=== PATIENT | female | born 1995 | race Caucasian/White ===

== ENCOUNTER 2021-08-29 11:30 | Emergency (ER) | payer OTHER, SELFPAY ==
--- NOTE | ~2021-08-29 | XR_ITS ---
EXAMINATION: XR chest 1V portable EXAM DATE: 08/29/2021 12:29 INDICATION: Cough and shortness of breath. TECHNIQUE: Portable AP frontal chest x-ray was obtained. There is no prior study for comparison. FINDINGS: The lungs are clear. There are no pleural effusions. The cardiomediastinal silhouette is within normal limits. There is no pneumothorax suspected. The bones and soft tissues are unremarkab le. IMPRESSION: No acute cardiopulmonary findings. Reviewed, dictated and finalized at location A. ERY CLERK
[2021-08-29 11:39] VITALS: BP 105/61; PULSE 105; RESP 18; TEMP 37.7; O2SAT 100
[2021-08-29] MEDS: SODIUM CHLORIDE 0.9% IV 1,000 ML 999 ML IV CONT (12:28)
[2021-08-29] MEDS: FAMOTIDINE 20 MG/2 ML VIAL IV PUSH (12:28)
--- NOTE | 2021-08-29 14:17 | ED.GENADULT ---
HPI - General Adult General Chief complaint: Upper Respiratory Infection Stated complaint: Vomiting and diarrhea Time Seen by Provider: 08/29/21 11:33 Source: patient and RN notes reviewed Mode of arrival: ambulatory Limitations: no limitations History of Present Illness HPI narrative: Patient is a 25-year-old female who presents with cough congestion rhinorrhea nausea that began over the course of the last 2 days she notes that she is not vaccinated she has had multiple sick contacts at work she has not been tested for COVID she presents nondistressed. 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 in the following week denies any abdominal pain vaginal bleeding or discharge or urinary symptoms Related Data Allergies Allergy/AdvReac Type Severity Reaction Status Date / Time diphenhydramine Allergy Unknown Nausea Verified 09/11/16 14:28 azithromycin AdvReac Unknown Nausea Verified 09/11/16 14:28 Review of Systems Review of Systems: All systems reviewed & are unremarkable except as noted in HPI and below PMFSH Family History Family History (Updated 04/14/14 @ 07:13 by DOCTOR UNKNOWN) Other Family history of arthritis Family history of malignant neoplasm Hypertension Social History Social History Smoking status: Current every day smoker Exam Narrative: GENERAL: Well-appearing, well-nourished, and in no acute distress. HEAD: Normocephalic, atraumatic. EYES: PERRLA and EOMI. ENT: Nares clear, no rhinorrhea or epistaxis. Mucous membranes moist. Oropharynx without tonsillar hypertrophy exudate or other lesions. CHEST: Clear to auscultation. No respiratory distress. No wheezes rales or rhonchi HEART: Regular rate and rhythm. No murmur heard. Normal peripheral pulses. EXTREMITIES: Normal range of motion. No edema. SKIN: Warm, dry, no rash. NEURO: No focal deficits. Alert and oriented x3. PSYCH: Normal mood and affect. Course Course Emergency Course: Patient presented with upper respiratory symptoms afebrile nontoxic-appearing nondistressed will be discharged home COVID testing pending she has been advised to follow with her Aaron chart for her COVID-19 results she is agreeing to do so. He is afebrile nontoxic-appearing nondistressed and has also been given indications for return Vital Signs Vital signs: Vital Signs Temperature 99.8 F H 08/29/21 11:39 Pulse Rate 105 H 08/29/21 11:39 Respiratory Rate 18 08/29/21 11:39 Blood Pressure 105/61 08/29/21 11:39 Pulse Oximetry 100 08/29/21 11:39 Temperature 99.8 F H 08/29/21 11:39 Pulse Rate 105 H 08/29/21 11:39 Respiratory Rate 18 08/29/21 11:39 Blood Pressure 105/61 08/29/21 11:39 Pulse Oximetry 100 08/29/21 11:39 Medical Decision Making MDM Narrative Medical decision making narrative: Patient presented with upper respiratory symptoms tested for COVID-19 no hypoxemia no pneumonia seen on exam she will be discharged home with presumptive COVID-19 diagnosis Vital Signs Vital Signs: Vital Signs Temperature 99.8 F H 08/29/21 11:39 Pulse Rate 105 H 08/29/21 11:39 Respiratory Rate 18 08/29/21 11:39 Blood Pressure 105/61 08/29/21 11:39 Pulse Oximetry 100 08/29/21 11:39 Temperature 99.8 F H 08/29/21 11:39 Pulse Rate 105 H 08/29/21 11:39 Respiratory Rate 18 08/29/21 11:39 Blood Pressure 105/61 08/29/21 11:39 Pulse Oximetry 100 08/29/21 11:39 Lab Data Labs: Lab Results 08/29/21 Range/Units 12:18 SARS-CoV-2 RNA (RT-PCR) Pending Imaging Data Radiologist's impression: ITS Impressions Chest X-Ray 08/29/21 12:31 IMPRESSION: No acute cardiopulmonary findings. Discharge Plan Discharge Clinical Impression: Upper respiratory infection Patient Disposition: Home, Self-Care Condition: Stable Instructions: Antibiotic Form,
[2021-08-29 14:42] VITALS: BP 122/78; PULSE 67; RESP 18; O2SAT 99
[2021-08-29 21:18] LABS: SARS-CoV-2 RNA PCR Negative
== END 2021-08-29 14:49 | disposition home or self-care (01) ==
PROVIDERS: Emergency Medicine Emergency Medical Services; Emergency Provider Emergency Medicine
DX: J06.9 Acute upper respiratory infection, unspecified (principal); Z20.822 Contact with and (suspected) exposure to COVID-19; F17.210 Nicotine dependence, cigarettes, uncomplicated
CPT/HCPCS: 71045; 96365; 96375; 99284; C9803; J0131; J7030; U0003; U0005

== ENCOUNTER 2022-03-31 21:58 | Observation (INO) | payer OTHER, SELFPAY ==
--- NOTE | 2022-03-31 21:58 | OBADM ---
This patient, Rosalie Houser, admitted to the OB room OB Post 115 for observation. Patient/family oriented to hospital policies and general routines including ID bracelet, bed and alarms, visiting hours, pain management, procedures, bathroom and other care routines, personal items, smoking policy, room service/diet, and visiting hours. Patient/Family are encouraged to report perceived risks to care and to ask questions if they do not understand what they are told or what they should do.
[2022-03-31 22:28] VITALS: BP 108/65; PULSE 96
[2022-03-31 22:30] VITALS: BP 107/60; PULSE 101; TEMP 37.1
[2022-03-31 22:45] VITALS: BP 96/65; PULSE 103
[2022-03-31 22:56] LABS: Appearance Urine Clear (Clear); Bilirubin Urine Negative (Negative); Blood Urine Negative (Negative); Color Urine Yellow (Yellow); Glucose Urine UA Negative (Negative); Ketones Urine Negative (Negative); Leukocyte Esterase Ur 1+ LEU/UL (Negative); Nitrate Urine Negative (Negative); Protein Urine Negative (Negative); Specific Grav Ur >= 1.030 (1.001-1.035)
[2022-03-31 23:00] VITALS: BP 100/60; PULSE 106
[2022-03-31 23:00] LABS: Bacteria Urine Trace /hpf; Mucus Urine Rare /lpf; Squamous Epithelial Cell Urine Few /hpf (Few)
[2022-03-31 23:02] LABS: Add Urine Microscopic? YES
--- NOTE | 2022-03-31 23:05 | PC.NURSE ---
Updated Dr. Manzanares on patient assessment. Patient complaint of vaginal burning since 1999. No discharge or redness noted during assessment. FHT reactive. No contractions were noted via monitoring and abdomen palpates soft. Orders received.
[2022-03-31] MEDS: FLUCONAZOLE 50 MG TABLET PO (23:37)
--- NOTE | 2022-04-05 07:03 | PM.OBTRLD ---
OB - Triage/Final Diagnosis Visit Information Comments/Additional reasons for admission: I have assessed the risk for this patient, Rosalie Houser, and determined that she would benefit from observation care. Evaluation Laboratory results: Laboratory Tests 03/31/22 22:50 Urine Color Yellow Urine Appearance Clear Urine pH 6.0 Ur Specific [place] >= 1.030 Urine Protein Negative Urine Glucose (UA) Negative Urine Ketones Negative Ur Blood (Man) Negative Urine Nitrate Negative Urine Bilirubin Negative Urine Urobilinogen 1.0 Leukocyte Esterase Rfl 1+ H Urine RBC 3-5 H Urine WBC 7-9 H Ur Squamous Epith Cells Few Urine Bacteria Trace Urine Mucus Rare Final Diagnosis (1) Vaginal irritation: Code(s): N89.8 - Other specified noninflammatory disorders of vagina Status: Acute
== END 2022-03-31 23:40 | disposition home or self-care (01) ==
PROVIDERS: Admitting Provider Obstetrics & Gynecology; Visit Provider Obstetrics & Gynecology
DX: O99.891 Other specified diseases and conditions complicating pregnancy (principal); N89.8 Other specified noninflammatory disorders of vagina; Z3A.38 38 weeks gestation of pregnancy
CPT/HCPCS: 81001; 87086; A9270; G0378; G0379

== ENCOUNTER 2022-04-03 13:26 | Inpatient (IN) | payer OTHER, SELFPAY ==
[2022-04-03] VITALS (89 sets, daily range): BP systolic 93–137; BP diastolic 47–81; PULSE 56–126; RESP 16–17; TEMP 36.8–37.3; O2SAT 96–100; BMI 24.3
--- NOTE | 2022-04-03 14:21 | LDADM ---
This patient, Rosalie Houser, was admitted to Labor/Delivery/Recovery 104 on 04/03/22 at 13:26. Plans for labor, pain management and were discussed with patient. Patient/family oriented to hospital policies and general routines including ID bracelet, bed and alarms, visiting hours, pain management, procedures, bathroom and other care routines, personal items, smoking policy, room service/diet and guest tray routines, infant security routines, and visiting hours. Patient/Family are encouraged to report perceived risks to care and to ask questions if they do not understand what they are told or what they should do. See OBIX for further documentation.
[2022-04-03] MEDS: AMPICILLIN 2 GM/NS 100 ML 2 GM/100 ML BAG IVPB (14:24)
[2022-04-03] MEDS: LACTATED RINGERS 1,000 ML 125 ML IV CONT ×3 (14:24→18:18)
[2022-04-03] MEDS: OXYTOCIN 30 UNITS/NS 500 ML 30 UNITS/500 ML BAG IV CONT (14:26)
[2022-04-03 14:27] LABS: Basophils Absolute Auto 0.1 K/mm3 (0.0-0.1); Basophils Percent Auto 0.4 % (0.2-1.2); Eosinophils Absolute Auto 0.1 K/mm3 (0-0.3); Eosinophils Percent Auto 0.5 % (0-4.4); Hematocrit 28.6 % (37.0-47.0); Hemoglobin 9.5 g/dL (12.0-15.0); Immature Granulocyte Absolute 0.08 K/mm3 (0.00-0.031); Immature Granulocyte Percent A 0.7 % (0-0.5); Lymphocytes Absolute Auto 2.32 K/mm3 (0.9-3.2); Lymphocytes Percent Auto 19.3 % (18.3-44.2); Mean Corpuscular HGB Conc 33.2 g/dl (32-36); Mean Corpuscular Hemoglobin 29.9 pg (26-34); Mean Corpuscular Volume 89.9 fl (80-100); Mean Platelet Volume 9.8 fl (7.4-10.4); Monocytes Absolute Auto 0.7 K/mm3 (0.1-0.6); Monocytes Percent Auto 5.5 % (2.6-8.5); Neutrophils Absolute Auto 8.8 K/mm3 (1.3-6.7); Neutrophils Percent Auto 73.6 % (45.5-73.1); Platelet Count Result 316 k/mm3 (150-375); Red Blood Count 3.18 M/mm3 (4.2-5.4); Red Cell Distribution Width 13.1 % (11.5-14.5)
[2022-04-03 15:08] LABS: HIV 1/2 Ab P24 Ag Result Negative (Negative)
[2022-04-03 15:09] LABS: Amphetamine Screen Urine Negative (Negative); Barbiturate Screen Urine Positive (Negative); Benzodiazepines Screen Urine Negative (Negative); Cannabinoid Screen Urine Negative (Negative); Cocaine Screen Urine Negative (Negative); Methadone Screen Urine Negative (Negative); Opiate Screen Urine Negative (Negative); Phencyclidine Screen Urine Negative (Negative)
--- NOTE | 2022-04-03 16:16 | WPDANESEPP ---
Anes - Eval Pre Procedure Procedure: labor epidural Date/Time: 04/03/22 16:16 Preop Diagnosis: labor pain Pre Op Diagnosis: IOL Patient Data Age: 26 Gender: F Height: 1.55 m Weight: 58.5 kg Last Vital Signs Temp 37.2 C 04/03/22 14:30 Pulse 93 04/03/22 15:30 BP 100/61 04/03/22 15:30 O2 Del Method Room Air 04/03/22 14:02 Allergies Allergy/AdvReac Type Severity Reaction Status Date / Time diphenhydramine Allergy Unknown Flushing Verified 04/03/22 13:56 azithromycin AdvReac Unknown Rash Verified 04/03/22 13:56 Home Medications Medication Instructions Recorded Confirmed Type ondansetron 4 mg disintegrating 4 mg PO Q8H PRN nausea and 09/03/21 04/03/22 Rx tablet vomiting #20 tabs PNV 153-FA 400 mcg-om3 35 mg-dha 1 tablet PO DAILY 04/03/22 04/03/22 History 25 mg-epa 5 mg-fish oil chew tablet ( Gummies) [id number]-[id number]-czxkcpew 1 tablet PO PRN PRN Headache 04/03/22 04/03/22 History 50 mg-325 mg-40 mg tablet Laboratory Tests 04/03/22 04/03/22 04/03/22 14:09 14:09 14:09 WBC 12.0 K/mm3 H K/mm3 (4.5-10.0) RBC 3.18 M/mm3 L M/mm3 (4.2-5.4) Hgb 9.5 g/dL L g/dL (12.0-15.0) Hct 28.6 % L % (37.0-47.0) MCV 89.9 fl fl (80-100) MCH 29.9 pg pg (26-34) MCHC 33.2 g/dl g/dl (32-36) RDW 13.1 % % (11.5-14.5) Plt Count 316 k/mm3 k/mm3 (150-375) MPV 9.8 fl fl (7.4-10.4) Immature Gran % (Auto) 0.7 % H % (0-0.5) Neut % (Auto) 73.6 % H % (45.5-73.1) Lymph % (Auto) 19.3 % % (18.3-44.2) [place] % (Auto) 5.5 % % (2.6-8.5) Eos % (Auto) 0.5 % % (0-4.4) Baso % (Auto) 0.4 % % (0.2-1.2) Lymph # (Auto) 2.32 K/mm3 K/mm3 (0.9-3.2) [place] # (Auto) 0.7 K/mm3 H K/mm3 (0.1-0.6) Eos # (Auto) 0.1 K/mm3 K/mm3 (0-0.3) Baso # (Auto) 0.1 K/mm3 K/mm3 (0.0-0.1) Abs Immat Gran (auto) 0.08 K/mm3 H K/mm3 (0.00-0.031) Absolute Neuts (auto) 8.8 K/mm3 H K/mm3 (1.3-6.7) Absolute Nucleated RBC 0.0 K/mm3 K/mm3 (0.0-0.012) Nucleated RBC % 0.0 % % (0.0-0.2) Urine Opiates Screen Urine Methadone Screen Ur Barbiturates Screen Ur Phencyclidine Scrn Ur Amphetamine Screen U Benzodiazepines Scrn Urine Cocaine Screen U Cannabinoids Screen RPR Pending HIV 1&2 Ab/P24 Ag 4thGn Negative (Negative) Blood Type Antibody Screen 04/03/22 04/03/22 14:09 14:09 WBC RBC Hgb Hct MCV MCH MCHC RDW Plt Count MPV Immature Gran % (Auto) Neut % (Auto) Lymph % (Auto) [place] % (Auto) Eos % (Auto) Baso % (Auto) Lymph # (Auto) [place] # (Auto) Eos # (Auto) Baso # (Auto) Abs Immat Gran (auto) Absolute Neuts (auto) Absolute Nucleated RBC Nucleated RBC % Urine Opiates Screen Negative (Negative) Urine Methadone Screen Negative (Negative) Ur Barbiturates Screen Positive A (Negative) Ur Phencyclidine Scrn Negative (Negative) Ur Amphetamine Screen Negative (Negative) U Benzodiazepines Scrn Negative (Negative) Urine Cocaine Screen Negative (Negative) U Cannabinoids Screen Negative (Negative) RPR HIV 1&2 Ab/P24 Ag 4thGn Blood Type B Positive Antibody Screen Negative Patient hx anesthesia problems: none Family hx anesthesia problems: none Results Review: All pre-operative results and documents have been reviewed as part of the pre-operative evaluation. PMFSH Past Medical History [facility]
[2022-04-03] MEDS: ACETAMINOPHEN 500 MG TABLET 1000 MG PO (17:10)
[2022-04-03] MEDS: AMPICILLIN 1 GM/NS 50 ML 1 GM/50 ML BAG IVPB (18:18)
--- NOTE | 2022-04-03 18:19 | WPDOBADMIT ---
Obstetrics - Admit Note Admission Note: record reviewed. No pertinent additions to the history and/or any subsequent changes in the physical findings that are not consistent with the expected course of the were found. Pt admitted to for IOL for oligohydramnios, Limited care, had not been seen in office since anatomy scan in December 2021. SVE 4-5/50/-2 AROM minimal amount of clear odorless fluid Additions to the history and/or subsequent changes in the physical findings follow. None.
--- NOTE | 2022-04-03 18:27 | PC.NURSE ---
Notes from admission until 1814 charted under Hanane Joseph RNs name actually charted by Brigid Cazares RN
[2022-04-03] MEDS: miSOPROStol 200 MCG TABLET 1000 MCG (20:06)
--- NOTE | 2022-04-03 20:09 | PM.OBPRVD ---
OB - Delivery Note Procedure Delivery date: 04/03/22 Procedure: Vaginal delivery Events: Other (Limited care and oligohydramnios) Induction method: Per Pitocin Protocol Delivery augmentation: Rupture of Membranes Delivery monitor: External FHT and External Uterine Route of delivery: Episiotomy description: None Laceration Description: Perineal - 1st Degree Delivery repair: vicryl Specimen: Yes Quantitative Blood Loss (ml): 155 Anesthesia type: Epidural Disposition: Floor [place] Baby Date of : 04/03/22 Time of : 19:52 Weeks of gestation at delivery: 39 Infant gender: Female Weight (pounds): 6 Weight (ounces): 7 presentation: vertex position: Left Occiput Anterior Placenta delivery description: Spontaneous Cord Vessel Description: 3 Vessels score one minute: 9 score five minutes: 9 Narrative: Mom and baby in stable condition. Baby to warmer for clean up per mom request.
[2022-04-03] MEDS: OXYTOCIN 30 UNITS/NS 500 ML 30 UNITS/500 ML BAG 125 UNITS IV CONT (20:27)
[2022-04-03] MEDS: WITCH HAZEL 40 PADS 1 PAD TOPICAL (22:28)
[2022-04-03] MEDS: BENZOCAINE 20% AER SPR (*SP) 56 GM CAN 1 SPRAY TOPICAL (22:28)
--- NOTE | 2022-04-03 22:39 | OBPPTRN ---
Patient transferred to post room #284 via W/C. Support person present. Oriented to unit, room, information board, rooming in, admission packet and security measures. Patient verbalizes understanding.
[2022-04-04] MEDS: IBUPROFEN 600 MG TABLET PO ×2 (01:03→20:51)
[2022-04-04 04:05] VITALS: BP 112/63; PULSE 60; RESP 18; TEMP 36.9
[2022-04-04 05:10] LABS: Hematocrit 25.5 % (37.0-47.0); Hemoglobin 8.5 g/dL (12.0-15.0)
[2022-04-04 07:36] LABS: Rapid Plasma Reagin Non-Reactive (NonReactive)
[2022-04-04] MEDS: DOCUSATE SODIUM 100 MG CAPSULE PO ×2 (07:39→16:07)
[2022-04-04] MEDS: ACETAMINOPHEN 325 MG TABLET 650 MG PO (07:39)
[2022-04-04] MEDS: POLYSACCHARIDE IRON COMPLEX 150 MG CAPSULE PO ×2 (07:41→16:07)
--- NOTE | 2022-04-04 07:41 | P.PNOB_ITS ---
OB - PN: Subj Subjective Date/time seen: 04/04/22 07:41 Patient comments: no complaints, pain well controlled, incisional pain, tolerating diet and flatus present OB - PN: Obj Data Labs CBC & Chem 7: 04/04/22 04:14 Labs: Laboratory Results - last 24 hr 04/03/22 04/03/22 04/03/22 14:09 14:09 14:09 WBC 12.0 H RBC 3.18 L Hgb 9.5 L Hct 28.6 L MCV 89.9 MCH 29.9 MCHC 33.2 RDW 13.1 Plt Count 316 MPV 9.8 Immature Gran % (Auto) 0.7 H Neut % (Auto) 73.6 H Lymph % (Auto) 19.3 [place] % (Auto) 5.5 Eos % (Auto) 0.5 Baso % (Auto) 0.4 Lymph # (Auto) 2.32 [place] # (Auto) 0.7 H Eos # (Auto) 0.1 Baso # (Auto) 0.1 Abs Immat Gran (auto) 0.08 H Absolute Neuts (auto) 8.8 H Absolute Nucleated RBC 0.0 Nucleated RBC % 0.0 Urine Opiates Screen Urine Methadone Screen Ur Barbiturates Screen Ur Phencyclidine Scrn Ur Amphetamine Screen U Benzodiazepines Scrn Urine Cocaine Screen U Cannabinoids Screen RPR Non-reactive HIV 1&2 Ab/P24 Ag 4thGn Negative Blood Type Antibody Screen 04/03/22 04/03/22 04/04/22 14:09 14:09 04:14 WBC RBC Hgb 8.5 L Hct 25.5 L MCV MCH MCHC RDW Plt Count MPV Immature Gran % (Auto) Neut % (Auto) Lymph % (Auto) [place] % (Auto) Eos % (Auto) Baso % (Auto) Lymph # (Auto) [place] # (Auto) Eos # (Auto) Baso # (Auto) Abs Immat Gran (auto) Absolute Neuts (auto) Absolute Nucleated RBC Nucleated RBC % Urine Opiates Screen Negative Urine Methadone Screen Negative Ur Barbiturates Screen Positive A Ur Phencyclidine Scrn Negative Ur Amphetamine Screen Negative U Benzodiazepines Scrn Negative Urine Cocaine Screen Negative U Cannabinoids Screen Negative RPR HIV 1&2 Ab/P24 Ag 4thGn Blood Type B Positive Antibody Screen Negative OB - PN A/P Plan day: 1 Plan: routine care Comments: No problems, routine care Time Spent With Patient Time: Total time spent is greater than 50% in coordination of care (as documented) at patient's floor/unit and/or counseling patient: Exam Const: General: comfortable, no acute distress and alert Resp: Effort & Inspection: normal respiratory effort Auscultation: no cranberry grower ckles, no rales and no rhonchi Cardio: Rate: regular rate Heart sounds: no click, no murmurs and no rubs GI: Inspection: non-distended GI Palp: No Tenderness to palpation present (GI) Auscultation: normal bowel sounds Other: Incision - CDI Extrem: General: normal to inspection, no pedal edema and no calf tenderness
[2022-04-04 07:45] VITALS: BP 112/74; PULSE 60; RESP 18; TEMP 37.1; O2SAT 100
--- NOTE | 2022-04-04 09:40 | PC.NURSE ---
[id number] Introductions were made, then consulted with patient to assess needs related to pumping for milk production. Mother led the conversation with her?plans to feed?her formula with no pumping. Reported to primary RN.
--- NOTE | 2022-04-04 12:02 | WPDANLDPN2 ---
Anes-Prog Note L&D Date/Time: 04/04/22 12:02 Comfortable throughout: labor and delivery Neuraxial method: epidural Epidural/Spinal procedure site: clean & non-tender Neuro status: Neuro function grossly intact. Cardiovascular status: normal Respiratory status: normal Airway patency: baseline Mental status: baseline Post-Op hydration status: normal Vital Signs: Last Vital Signs Temp 37.1 C 04/04/22 07:45 Pulse 60 04/04/22 07:45 Resp 18 04/04/22 07:45 BP 112/74 04/04/22 07:45 Pulse Ox 100 04/04/22 07:45 O2 Del Method Room Air 04/03/22 23:00 Pain score (VAS): 2 I/O: Intake & Output 04/03/22 04/04/22 04/04/22 23:59 07:59 15:59 Intake Total 2000 Output Total 50 Balance 1950 Patient feedback: Patient satisfied with anesthetic care.
[2022-04-04 12:30] VITALS: BP 96/65; PULSE 82; RESP 14; TEMP 36.6; O2SAT 99
[2022-04-04] MEDS: ACETAMINOPHEN 500 MG TABLET 1000 MG PO (16:07)
[2022-04-04 16:20] VITALS: BP 117/73; PULSE 71; RESP 14; TEMP 36.5; O2SAT 99
[2022-04-04 19:40] VITALS: BP 111/75; PULSE 74; RESP 16; TEMP 36.7; O2SAT 99
[2022-04-05] MEDS: ACETAMINOPHEN 500 MG TABLET 1000 MG PO (05:35)
[2022-04-05] MEDS: TETANUS,DIPHTHERIA,AC PERTUSSIS ADULT (0.5 ML) BOOSTRIX IM (05:35)
[2022-04-05 07:20] VITALS: BP 101/65; PULSE 64; RESP 16; TEMP 36.6; O2SAT 100
--- NOTE | 2022-04-05 07:26 | PM.OBPNVD ---
OB - PN: Subj Subjective Date/time seen: 04/05/22 07:26 s/p vaginal delivery day 2 OB - PN: Obj Data Labs CBC & Chem 7: 04/04/22 04:14 Labs: Laboratory Results - last 24 hr 04/03/22 14:09 RPR Non-reactive OB - PN A/P Plan day: 2 Plan: routine care and discharge home Time Spent With Patient Time: Total time spent is greater than 50% in coordination of care (as documented) at patient's floor/unit and/or counseling patient: Review of Systems Review of Systems: All systems reviewed & are unremarkable except as noted in HPI and below Exam Const: General: cooperative, healthy appearing and comfortable
--- NOTE | 2022-04-05 07:28 | PM.OBDSVD ---
DS: Admitting Diagnosis Discharge Date 04/05/22 Admitting Diagnosis IOL, oligohydramnios OB - DS: Summary OB Procedures : None OB Procedures Intrapartum: Spontaneous Vag Delivery OB Procedures: : None Time Spent with Patient Time attestation: Total time spent providing and/or coordinating discharge services: DS: Data Data Completed and Pending Pending studies at discharge: Pending at discharge 04/03/22 19:56 Surgical [PTH] Routine Labs on day of discharge: Labs from last 24 hours 04/03/22 14:09 RPR Non-reactive Discharge Plan Discharge Attending physician on discharge: Crow Hurtado Discharging Clinician: Della Mclaughlin Patient Disposition: Home, Self-Care Activity: pelvic rest Diet: regular Patient Instructions: Antibiotic Form Stand Alone Forms: General Discharge Information Follow-up/Referrals: Della Mclaughlin, CNM [Certified Nurse First Grade Teacher] - 4 Weeks Discharge Medications: New polysaccharide iron complex 150 mg iron Capsule 150 mg PO BIDWM Qty: 60 0RF ibuprofen 600 mg Tablet 600 mg PO Q6H PRN (Reason: Cramping) Qty: 30 0RF Continued Gummies 400 mcg-35 mg- 25 mg-5 mg Tablet,Chewable 1 tablet PO DAILY Discontinued ondansetron 4 mg tablet,disintegrating 4 mg PO Q8H PRN (Reason: nausea and vomiting) Qty: 20 0RF cfueelqrga-ndjwrragmksrp-wyfh 50-325-40 mg tablet 1 tablet PO PRN PRN (Reason: Headache) Date of admission: 04/03/22 13:26 Primary Care Provider: PHYSICIAN,CONSULTING TECHNICAL MANAGER Admitting Provider: Crow Hurtado Attending physician on admission: Crow Hurtado Condition: Stable
[2022-04-05] MEDS: POLYSACCHARIDE IRON COMPLEX 150 MG CAPSULE PO (07:58)
[2022-04-05] MEDS: DOCUSATE SODIUM 100 MG CAPSULE PO (07:58)
--- NOTE | 2022-04-05 08:33 | PC.NURSE ---
Patient was given the opportunity to view the discharge video Mother & Baby Care, The First Two Weeks and to ask questions. Patient declined viewing the video and has been given the mother/baby guide for home reference.
--- NOTE | 2022-04-05 10:34 | PC.NURSE ---
note; my initial information stated mother was choosing to pump and bottle feed . Mother planning discharge today, and I stopped in to see pt and discuss her pumping; pt reports she has not started pumping I don't have anything and plans to see her WIC office to get a pump. Primary nurse reports and notes confirm that pt told 2 nurses she did not want to pump, that she wanted to bottle feed and for her milk to dry up . I told the pt I would return. I returned to pt's room to offer to give her a pump kit so that she could hand pump over the weekend, and pt had been discharged home, she did not wait for nurse to return. I was able to obtain her signature consent to fax information to the [facility] Department, and form was faxed at [phone]. I also spoke to Niki the Health Department and all of the above explained to her.
[2022-04-06 11:24] VITALS: BP 99/61; PULSE 77; RESP 18; TEMP 36.7; O2SAT 98
== END 2022-04-05 09:40 | disposition home or self-care (01) | DRG 560 ==
LOC: ANHLDR 13:30 → ANHOB2 04-04 01:18
PROVIDERS: Advanced Practice Midwife; Admitting Provider Obstetrics & Gynecology; Visit Provider Obstetrics & Gynecology
DX: O41.03X0 Oligohydramnios, third trimester, not applicable or unspecified (principal); O70.0 First degree perineal laceration during delivery; Z3A.39 39 weeks gestation of pregnancy; Z37.0 Single live birth
CPT/HCPCS: 36415; 80307; 85014; 85018; 85025; 86592; 86703; 86850; 86900; 86901; 88307; 90715; A9270; G0432; J0290; J2590; J2795; J7120

== ENCOUNTER 2023-07-18 14:54 | Emergency (ER) | payer OTHER, SELFPAY ==
--- NOTE | ~2023-07-18 | XR_ITS ---
XR finger 1st LT min 2V DATE: 07/18/2023 15:15 INDICATION: Possible injury last night. Pain of proximal and distal phalanges of first digit TECHNIQUE: 3 views of first digit COMPARISON: None FINDINGS: No fracture or dislocation, periosteal reaction or bone destruction. Joint spaces are prese rved. No erosive change. IMPRESSION: Negative Reviewed, dictated and finalized at location A. OR TECHNICAL MANAGER IMPRESSION: Negative
[2023-07-18 15:03] VITALS: BP 101/56; PULSE 81; RESP 16; TEMP 36.7; O2SAT 100
--- NOTE | 2023-07-18 15:08 | ED.UPPEXIN ---
HPI - Extremity Injury (Upper) General Chief Complaint: Extremity Injury, Upper Stated Complaint: Lt Thumb Injury Source: patient, RN notes reviewed and old records reviewed Mode of arrival: ambulatory Limitations: no limitations History of Present Illness HPI narrative: 27-year-old female presents to [facility] with complaint of left thumb pain, swelling, bruising this started after patient tried tissue to crossbow and finger got caught in both. Patient states he has tried ice area without relief. Patient says has tingling and tip of finger. MD complaint: injury to: left and finger Onset (ago): day(s) (1) Other Extremity Injury: Left: fingers ( Left thumb) Relieving factors: none Exacerbating factors: none Related Data Home Medications Medication Instructions Recorded Confirmed methylphenidate HCl 36 mg 36 mg PO DAILY 07/18/23 07/18/23 tablet,extended release 24 hr (Concerta) Allergies Allergy/AdvReac Type Severity Reaction Status Date / Time azithromycin AdvReac Mild Rash Verified 07/18/23 15:18 diphenhydramine AdvReac Mild Rash Verified 07/18/23 15:18 Review of Systems Constitutional: Constitutional: Reports no additional constitutional complaints Eyes: Eyes: Reports no additional eye complaints ENT: Reports system reviewed and no additional complaints, except as documented Cardiovascular: Cardiovascular: Reports no additional cardiovascular complaints Respiratory: Respiratory: Reports no additional respiratory complaints Musculoskeletal: Musculoskeletal: Reports as per HPI Comments: Left thumb pain and swelling Neurologic: Reports system reviewed and no additional complaints, except as documented [facility] Past Medical History Medical History Anxiety Asthma Chondromalacia Depression Migraine Right knee pain Surgical History Surgical History No history of previous surgery Family History Family History Other Family history of arthritis Family history of malignant neoplasm Hypertension Social History Social History Smoking status: Light tobacco smoker Second hand tobacco smoke exposure: Yes Substance use: never Spiritual care concerns: No Comments At the time of my signature, I reviewed and agree with the nursing past medical, surgical, social, and family history. There is no relevant family history pertinent to the patient complaint. Exam Const: General: cooperative, healthy appearing, no acute distress and well nourished Nutritional Appearance: well nourished Orientation/consciousness: patient oriented x3 Limitations: no limitations HENMT: Head: normal to inspection and normocephalic Ears: external ears normal, TM's normal bilaterally, mastoids normal and Abnormal EAC present Face/Nose/Sinus: normal facial exam Face and sinus: normal facial exam Mouth: Yes Normal oral and palatal mucosa present, Yes oropharynx normal and Yes moist mucous membranes Throat: posterior oropharynx normal, tonsils normal, uvula midline and no uvular edema Eyes: General: appearance normal, both eyes and all related structures Sclera: sclerae normal Pupils: Equal, round and reactive pupils present Resp: Effort & Inspection: normal respiratory effort, able to speak in complete sentences, no audible wheezes, no cough, no respiratory distress and no retractions Auscultation: clear to auscultation bilaterally, no crackles, no rales, no rhonchi and no wheezes Cardio: Rate: regular rate Rhythm: regular rhythm Skin: General skin exam: normal color and no rashes or lesions noted Neuro: General: patient oriented x3 Cranial nerves: Yes Equal, round and reactive pupils present Extrem: Left upper extremity: normal capillary refill, edema, no joint enlargement
== END 2023-07-18 15:35 | disposition home or self-care (01) ==
PROVIDERS: Emergency Provider Registered Nurse
DX: S60.012A Contusion of left thumb without damage to nail, initial encounter (principal); X58.XXXA Exposure to other specified factors, initial encounter; S63.602A Unspecified sprain of left thumb, initial encounter; F17.200 Nicotine dependence, unspecified, uncomplicated; J45.909 Unspecified asthma, uncomplicated
CPT/HCPCS: 29130; 73140; 99213; G0463

== ENCOUNTER 2025-05-12 06:59 | Outpatient (CLI) | payer OTHER, SELFPAY ==
--- NOTE | ~2025-05-12 | MR_ITS ---
EXAMINATION: MR brain/brain stem wo/w con DATE: 05/12/2025 07:43 INDICATION: Migraine, unspecified, not intractable. TECHNIQUE: Magnetic resonance imaging (MRI) of the brain and brainstem was performed without and with 9 mL MultiHance intravenous contrast. COMPARISON: None. FINDINGS: There is no intracranial hemorrhage, acute infarction, or abnormal intracranial mass lesion. The ventricles are normal in size. The orbits are normal. There is mild mucosal thickening in the paranasal sinuses. The mastoid air cells are normal. IMPRESSION: 1. Normal brain. Reviewed, dictated and finalized at location E. IMPRESSION: 1. Normal brain.
--- OUTSIDE RECORDS SUMMARY | 2025-05-12 07:02 | XMS_ITS | Clinical Summary ---
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 01/20/2020 Active naproxen (NAPROSYN) 500 MG tablet Take 1 tablet (500 mg total) by mouth 2 (two) times daily with meals. 10 tablet 03/06/2025 Active HYDROcodone-acet aminophen (NORCO) 5-325 MG tabletIndication s:Acute Pain < 3 Day Supply Take 1 tablet by mouth every 6 (six) hours as needed. Indications : Acute Pain < 3 Day Supply 10 tablet 03/06/2025 Active Active Problems No known active problems Encounters Date Type Department Care Team Description 03/06/2025 12:50 PM CDT - 03/06/2025 3:06 PM CDT Emergency [facility] [address] [place] [address] Santiago Jeffers MD Urinary Symptoms Discharge Disposition: Home or Self Care (Routine Discharge) 03/06/2025 Travel from Last 3 Months Family History Medical History Relation Comments Depression Brother Heart Disease Maternal Grandfather Depression Mother Relation Status Comments Brother Maternal Grandfather Mother Social History Tobacco Use Types Packs/Day Years Used Date Smoking Tobacco: Every Day Cigarettes 0.5 8 Smokeless Tobacco: Never Alcohol Use Standard Drinks/Week Comments No 0 (1 standard drink = 0.6 oz pur e alcohol) AUDIT-C Answer Date Recorded Frequency of Alcohol Consumption Never 05/12/2019 Average Number of Drinks Not on file 019 Frequency of Binge Drinking Not on file 04/19 PHQ-2 Answer Date Recorded PHQ-2 Score 4 07/25/2019 Comments No Sex and Gender Information Value Date Recorded Sex Assigned at Female 12/01/2024 1:18 PM CDT Legal Sex Female 6:24 PM CDT Gender Identity Not on file Sexual Orientation Not on file Last Filed Vital Signs Vital Sign Reading Time Taken Comments Blood Pressure 111/64 03/06/2025 2:49 PM CDT Pulse 77 03/06/2025 2:49 PM CDT Temperature 36.7 C (98 F) 03/06/2025 2:49 PM CDT Respiratory Rate 18 03/06/2025 2:49 PM CDT Oxygen Saturation 100% 03/06/2025 2:49 PM CDT Inhaled Oxygen Concentration - - Weight 49.9 kg (110 lb) 03/06/2025 12:59 PM CDT Height 154.9 cm (5' 1) 03/06/2025 12:59 PM CDT Body Mass Index 20.78 03/06/2025 12:59 PM CDT Plan of Treatment Health Maintenance Due Date Last Done Comments Cervical Cancer Screening Pap Smear (Age 30 to 64) Every 3 Years 1993 Annual Physical 1996 Hepatitis C 12/19/2011 Hepatitis B Vaccines (1 of 3 - 19+ 3-dose series) 2012 Pneumococcal Vaccine: Pediatrics (0 to 5 Years) and At-Risk Patients (6 to 49 Years) (1 of 2 - PCV) 2012 HPV Vaccines (1 - 3-dose SCDM series) 2020 Cervical Cancer Screening Pap with HPV Testing (Age 30 to 64) Every 5 Years 12/19/2023 Cervical Cancer Screening with HPV 12/19/2023 COVID-19 Vaccine ( season) 2025 DTaP, Tdap and Td Vaccines (4 - Td or Tdap) 02/26/2028 02/25/2018, 02/07/2018, 04/28/1998, Additional history exists Meningococcal B Vaccine Aged Out No l onger eligible based on patient's age to complete this topic Meningococcal Vaccine Aged Out No george jennifer eligible based on patient's age to complete this topic RSV Immunizations Under 20 Months Aged Out No longer eligible based on patient's age to complete this topic Procedures Procedure Name Priority Date/Time Associated Diagnosis Comments XR CHEST PORTABLE STAT 03/06/2025 2:[address] ABD+PEL W CON STAT 03/06/2025 2:00 PM CDT TEST URINE STAT 03/06/2025 1:10 PM CDT LIPASE STAT 03/06/2025 1:10 PM CDT URINALYSIS, AUTO, COMPLETE STAT 03/06/2025 1:10 PM CDT COMPREHENSIVE METABOLIC PANEL STAT 03/06/2025 1:10 PM CDT CBC W/DIFF AUTOMATED STAT 03/06/2025 1:10 PM CDT from Last 3 Months Results * XR CHEST PORTABLE (03/06/2025 2:02 PM CDT) Anatomical Region Laterality Modality Chest Radiographic Melissa ging 03/06/2025 2:35 PM CDT Impressions 03/06/2025 2:35 PM CDT IMPRESSION: ======== 1. No acute cardiopulmonary findings. Referred By: Interpreted By: Dexter Renee MD, 03/06/2025 2:35 PM Narrative 03/06/2025 2:35 PM CDT [facility] [address] [place] [address] Examination: Chest x-ray 1 view Exam Date/Time: 03/06/2025 1:55 PM Reason For Exam: pleuritic pain Comparison: 06/11/2017 chest radiograph Technique: Single AP view of the chest was obtained. Findings: Heart size normal. No pleural effusion. No pneumothorax. No focal infiltrate or consolidative changes. Pulmonary vascularity within normal limits. ======== Procedure Note Dexter Renee MD - 03/06/2025 [facility] [address] [place] [address] Examination: Chest x-ray 1 view Exam Date/Time: 03/06/2025 1:55 PM Reason For Exam: pleuritic pain Comparison: 06/11/2017 chest radiograph Technique: Single AP view of the chest was obtained. Findings: Heart size normal. No pleural effusion. No pneumothorax. Nofocal infiltrate or consolidative changes. Pulmonary vascularity withinnormal limits. ======== IMPRESSION: ======== 1. No acute cardiopulmonary findings. Referred By: Interpreted By: Dexter Renee MD, 03/06/2025 2:35 PM Santiago Jeffers MD GENERAL IMAGING Final Result * CT ABD+PEL W CON (03/06/2025 2:00 PM CDT) Anatomical Region Laterality Modality Abdomen Computed Tomogra phy 03/06/2025 2:35 PM CDT Impressions 03/06/2025 2:38 PM CDT IMPRESSION: ===== 1. Small region of heterogeneous decreased enhancement in the posterior lateral upper left kidney. Pyelonephritis suspected with underlying developing lesion or focal infarct not entirely excluded. Follow-up renal mass protocol enhanced CT or MRI recommended after appropriate course of therapy. 2. No hydronephrosis or obstructive uropathy. 3. Cholelithiasis without further CT evidence of acute cholecystitis. Referred By: Interpreted By: Dexter Renee MD, 03/06/2025 2:35 PM Narrative 03/06/2025 2:38 PM CDT [facility] [address] [place] [id number] EXAMINATION: CT Abdomen and Pelvis with contrast EXAM DATE/TIME: 03/06/2025 1:55 PM REASON FOR EXAM: possible left pyelonephritis Left-sided kidney pain. History of UTI. COMPARISON: 03/29/2016 CT abdomen and pelvis TECHNIQUE: Axial CT images of the abdomen and pelvis are obtained following uneventful intravenous administration of 75 cc Isovue-370. Subsequent coronal and sagittal reformatted sequences are created for evaluation. A dose lowering technique was used for this procedure, which may include, but is not limited to, dose reduction technique, automated exposure control, iterative reconstruction, ALARA (As Low As Reasonably Achievable), or Image Gently techniques. FINDINGS: Lung bases are clear. No pleural effusion. Heart size normal. No pericardial effusion. The liver and spleen are normal in size and surface contour. No abnormal enhancing hepatic lesions. Variable densities within the gallbladder with rounded appearance suggestive of noncalcified cholelithiasis. No further CT evidence of acute cholecystitis. Pancreas and adrenal glands unremarkable. Abdominal aorta normal in caliber throughout. Kidneys demonstrate no evidence of hydronephrosis or obstructive uropathy. There is a small region of the posterior lateral upper left kidney with heterogeneous decreased enhancement. Pyelonephritis suspected with underlying developing lesion or focal infarct not entirely excluded. No significant perinephric stranding appreciated. Bowel is normal in caliber throughout. No evidence of bowel obstruction. No free fluid in the pelvis. Bladder contours are smooth. Involuting cyst in the left ovary. Appendix normal. Bone level imaging shows no destructive osseous lesions. L4 limbus vertebrae normal variant. ===== Procedure Note Dexter Renee MD - 03/06/2025 [facility] [address] [place] [id number] EXAMINATION: CT Abdomen and Pelvis with contrast EXAM DATE/TIME: 03/06/2025 1:55 PM REASON FOR EXAM: possible left pyelonephritis Left-sided kidney pain. History of UTI. COMPARISON: 03/29/2016 CT abdomen and pelvis TECHNIQUE: Axial CT images of the abdomen and pelvis are obtainedfollowing uneventful intravenous administration of 75 cc Isovue-370.Subsequent coronal and sagittal reformatted sequences are created forevaluation. A dose lowering technique was used for this procedure, whichmay include, but is not limited to, dose reduction technique, automatedexposure control, iterative reconstruction, ALARA (As Low As ReasonablyAchievable), or Image Gently techniques. FINDINGS: Lung bases are clear. No pleural effusion. Heart size normal.No pericardial effusion. The liver and spleen are normal in size and surface contour. No abnormalenhancing hepatic lesions. Variable densities within the gallbladder withrounded appearance suggestive of noncalcified cholelithiasis. No furtherCT evidence of acute cholecystitis. Pancreas and adrenal glandsunremarkable. Abdominal aorta normal in caliber throughout. Kidneysdemonstrate no evidence of hydronephrosis or obstructive uropathy. Thereis a small region of the posterior lateral upper left kidney withheterogeneous decreased enhancement. Pyelonephritis suspected withunderlying developing lesion or focal infarct not entirely excluded. Nosignificant perinephric stranding appreciated. Bowel is normal in caliberthroughout. No evidence of bowel obstruction. No free fluid in thepelvis. Bladder contours are smooth. Involuting cyst in the left ovary.Appendix normal. Bone level imaging shows no destructive osseous lesions.L4 limbus vertebrae normal variant. ===== IMPRESSION: ===== 1. Small region of heterogeneous decreased enhancement in the posteriorlateral upper left kidney. Pyelonephritis suspected with underlyingdeveloping lesion or focal infarct not entirely excluded. Follow-up renalmass protocol enhanced CT or MRI recommended after appropriate course oftherapy. 2. No hydronephrosis or obstructive uropathy. 3. Cholelithiasis without further CT evidence of acute cholecystitis. Referred By: Interpreted By: Dexter Renee MD, 03/06/2025 2:35 PM Santiago Jeffers MD CT Final Result * TEST URINE (03/06/2025 1:10 PM CDT) URINE HCG TEST NEGATIVE NEGATIVE 03/06/2025 1:31 PM CDT [facility] Comment: VERY DILUTE URINE SPECIMENS MAY NOT CONTAIN CEMETERY COUNSELOR LEVELS OF HCG. IF IS STILL SUSPECTED, A SERUM HCG TEST IS RECOMMENDED. URINE SPECIMEN FROM URETHRA / Unknown 03/06/2025 1:10 PM CDT us Santiago Jeffers MD URINE ORDERABLES Final Result [facility] [address] [place] [address], [place] [phone] * (ABNORMAL) Urinalysis, Auto, Complete (03/06/2025 1:10 PM CDT) COLOR (U) YELLOW 03/06/2025 1:30 PM CDT [facility] TRANSPARENCY HAZY 03/06/2025 1:30 PM CDT [facility] SPECIFIC GRAVITY (U) 1.020 1.000 - 1.030 03/06/2025 1:30 PM CDT [facility] U PH 6.0 5.0 - 9.0 03/06/2025 1:30 PM CDT [facility] LEUKOCYTES (U) TRACE(A) NEGATIVE 03/06/2025 1:30 PM CDT [facility] NITRITES POSITIVE(A) NEGATIVE 03/06/2025 1:30 PM CDT [facility] PROTEIN RANDOM (U) NEGATIVE NEGATIVE 03/06/2025 1:30 PM CDT [facility] GLUCOSE (U) NEGATIVE NEGATIVE 03/06/2025 1:30 PM CDT [facility] KETONES MG/DL (U) NEGATIVE NEGATIVE 03/06/2025 1:30 PM CDT [facility] BILIRUBIN (U) NEGATIVE NEGATIVE 03/06/2025 1:30 PM CDT [facility] BLOOD (U) 2+(A) NEGATIVE 03/06/2025 1:30 PM CDT [facility] WBC/HPF 5-10 0 - 5 /HPF 03/06/2025 1:30 PM CDT [facility] RBC/HPF 5-10 0 - 5 /HPF 03/06/2025 1:30 PM CDT [facility] EPI/HPF MANY /HPF 03/06/2025 1:30 PM CDT [facility] BACTERIA (U) MANY /HPF 03/06/2025 1:30 PM CDT [facility] URINE SPECIMEN OBTAINED BY CLEAN CATCH PROCEDURE / Unknown 03/06/2025 1:10 PM CDT Santiago Jeffers MD URINE ORDERABLES Final Result [facility] [address] [place] [address], [place] [phone] * (ABNORMAL) COMPREHENSIVE METABOLIC PANEL (03/06/2025 1:10 PM CDT) GLUCOSE 109(H) 70 - 99 MG/DL 03/06/2025 1:36 PM CDT [facility] BUN 9 7 - 18 MG/DL 03/06/2025 1:36 PM CDT [facility] CREATININE S/P/B 0.56 0.55 - 1.02 MG/DL 03/06/2025 1:36 PM CDT [facility] SODIUM S/P/B 140 136 - 145 MMOL/L 03/06/2025 1:36 PM CDT [facility] POTASSIUM S/P/B 3.8 3.5 - 5.1 MMOL/L 03/06/2025 1:36 PM CDT [facility] CHLORIDE S/P/B 104 100 - 108 MMOL/L 03/06/2025 1:36 PM [facility] CO2 28.3 21 - 32 MMOL/L 03/06/2025 1:36 PM [facility] CALCIUM S/P/B 9.3 8.5 - 10.1 MG/DL 03/06/2025 1:36 PM [facility] BILIRUBIN TOTAL S/P/B 0.4 0.2 - 1.2 MG/DL 03/06/2025 1:36 PM [facility] TOTAL PROTEIN S/P/B 7.1 6.4 - 8.2 G/DL 03/06/2025 1:36 PM [facility] ALBUMIN S/P/B 3.7 3.4 - 5.0 G/DL 03/06/2025 1:36 PM [facility] AST 9(L) 15 - 37 U/L 03/06/2025 1:36 PM [facility] ALT 20 14 - 55 U/L 03/06/2025 1:36 PM [facility] ALKALINE PHOSPHATASE S/P/B 64 50 - 136 U/L 03/06/2025 1:36 PM [facility] ANION GAP 7.7 5 - 15 MMOL/L 03/06/2025 1:36 PM [facility] BUN CREATININE RATIO 16.1 6 - 26 03/06/2025 1:36 PM [facility] A/G RATIO 1.1 1.0 - 2.0 RATIO 03/06/2025 1:36 PM [facility] GFR ESTIMATE >90 >90 ML/MIN/1.7 3 M2 03/06/2025 1:36 PM [facility] Comment: NOTE: eGFR is not calculated for patients <18 years of age. This is an estimated GFR calculation using the new CKD EPI creatinine equation without race and so does not require a correction factor for race. This estimated GFR should not be used for calculating drug doses. 03/06/2025 1:10 PM CDT Santiago Jeffers MD LABORATORY Final Result [facility] [address] [place] [address], * (ABNORMAL) CBC W/DIFF AUTOMATED (03/06/2025 1:10 PM CDT) WBC 8.56 4.4 - 11.0 x10'3/uL 03/06/2025 1:24 PM CDT [facility] RBC 4.05(L) 4.50 - 5.10 x10'6/uL 03/06/2025 1:24 PM CDT [facility] HGB 12.4 12.3 - 15.3 G/DL 03/06/2025 1:24 PM CDT [facility] HCT 37.3 35.9 - 44.6 % 03/06/2025 1:24 PM CDT [facility] MCV 92.1 80.0 - 96.0 FL 03/06/2025 1:24 PM CDT [facility] MCH 30.6 25.3 - 30.9 PG 03/06/2025 1:24 PM CDT [facility] MCHC 33.2 31.0 - 34.1 G/DL 03/06/2025 1:24 PM CDT [facility] RDW 13.5 12.4 - 15.1 % 03/06/2025 1:24 PM CDT [facility] PLT 245 151 - 353 x10'3/uL 03/06/2025 1:24 PM CDT [facility] MPV 9.6 9.6 - 12.0 FL 03/06/2025 1:24 PM CDT [facility] RBC MORPHOLOGY NORMAL 03/06/2025 1:24 PM CDT [facility] PLT MORPH. NORMAL 03/06/2025 1:24 PM CDT [facility] WBC MORPHOLOGY NORMAL 03/06/2025 1:24 PM CDT [facility] LYMPHOCYTES % 17.4 15.8 - 45.0 % 03/06/2025 1:24 PM CDT [facility] NEUTROPHILS % 75.0(H) 42.1 - 71.9 % 03/06/2025 1:24 PM CDT [facility] MONOCYTES % 6.3 5.7 - 12.5 % 03/06/2025 1:24 PM CDT [facility] EOSINOPHILS 0.6 0.0 - 5.6 % 03/06/2025 1:24 PM CDT [facility] BASOPHILS 0.5 0.0 - 1.3 % 03/06/2025 1:24 PM CDT [facility] ABS. NEUTROPHILS 6.42(H) 1.40 - 6.00 x10'3/uL 03/06/2025 1:24 PM CDT [facility] IMMATURE GRANS % 0.2 0.0 - 0.5 % 03/06/2025 1:24 PM CDT [facility] ABS. LYMPHOCYTES 1.49 0.80 - 4.70 x10'3/uL 03/06/2025 1:24 PM CDT [facility] 03/06/2025 1:10 PM CDT Santiago Jeffers MD LABORATORY Final Result [facility] [address] [place] [address], [place] [phone] * LIPASE (03/06/2025 1:10 PM CDT) LIPASE 21 16 - 77 UNITS/L 03/06/2025 1:36 PM CDT [facility] 03/06/2025 1:10 PM CDT us Santiago Jeffers MD LABORATORY Final Result [facility] [address] [place] [address], [place] [phone] from Last [address] [place] [address] Advance Directives Documents on File Type Date Recorded Patient Office Correspondent Expl anation Advance Directives and Living Will 05/12/2013 12:00 AM ADVANCED DIRECTIVES Advance Directives and Living Will 05/12/2013 12:00 AM ADVANCED DIRECTIVES Advance Directives and Living Will 05/11/2013 12:00 AM ADVANCED DIRECTIVES Advance Directives and Living Will 05/11/2013 12:00 AM ADVANCED DIRECTIVES Advance Directives and Living Will 05/10/2013 12:00 AM ADVANCED DIRECTIVES Advance Directives and Living Will 05/10/2013 12:00 AM ADVANCED DIRECTIVES Advance Directives and Living Will 05/06/2013 12:00 AM ADVANCED DIRECTIVES Advance Directives and Living Will 05/06/2013 12:00 AM ADVANCED DIRECTIVES Advance Directives and Living Will 04/21/2013 12:00 AM ADVANCED DIRECTIVES Advance Directives and Living Will 04/08/2013 12:00 AM ADVANCED DIRECTIVES Advance Directives and Living Will 04/06/2013 12:00 AM ADVANCED DIRECTIVES Advance Directives and Living Will 03/16/2013 12:00 AM ADVANCED DIRECTIVES Advance Directives and Living Will 01/14/2013 12:00 AM ADVANCED DIRECTIVES Advance Directives and Living Will 11/03/2012 12:00 AM ADVANCED DIRECTIVES Advance Directives and Living Will 10/16/2012 12:00 AM ADVANCED DIRECTIVES Advance Directives and Living Will 08/10/2012 12:00 AM ADVANCED DIRECTIVES * Full Code (Latest Code Status on File) Date Activated Date Inactivated Comments 03/24/2022 12:19 AM 03/24/2022 2:34 AM Care Teams Edge Banding Machine Offbearer Relationship Specialty Start Date End Date None, Provider, PCP - General 03/14/21 Nilton Hurtado MD [address] [place] [phone] [facility] 03/06/25
[2025-05-12 08:09] LABS: Hematocrit 36.5 % (37.0-47.0); Hemoglobin 11.8 g/dL (12.0-15.0); Immature Granulocyte Percent A 0.3 % (0-0.5); Lymphocytes Absolute Auto 2.60 K/mm3 (0.9-3.2); Mean Corpuscular HGB Conc 32.3 g/dl (32-36); Mean Corpuscular Hemoglobin 30.3 pg (26-34); Mean Corpuscular Volume 93.8 fl (80-100); Nucleated Red Blood Cells Absolute Auto 0.000 K/mm3 (0.0-0.012); Nucleated Red Blood Cells Perc 0.0 % (0.0-0.2); Platelet Count Result 259 k/mm3 (150-375); Red Blood Count 3.89 M/mm3 (4.2-5.4); White Blood Count 6.9 K/mm3 (4.5-10.0)
[2025-05-12 08:35] LABS: Anion Gap 6 mmol/L (4-12); Blood Urea Nitrogen 13 mg/dL (7-17); Calcium 9.1 mg/dL (8.4-10.2); Carbon Dioxide 25 mmol/L (22-30); Chloride 105 mmol/L (98-107); Estimated Glomerular Filt Rate > 60; Glucose 82 mg/dL (65-110); Potassium 3.9 mmol/L (3.4-5.0); Sodium 136 mmol/L (137-145)
[2025-05-12 09:11] LABS: Thyroid Stimulating Hormone 1.510 uIU/mL (0.465-4.680)
== END 2025-05-12 07:00 | disposition home or self-care (01) ==
LOC: ANHIMG 07:00
PROVIDERS: PCP Family Medicine; Visit Provider Physician Assistant Medical
DX: G43.909 Migraine, unspecified, not intractable, without status migrainosus (principal)
CPT/HCPCS: 36415; 70553; 80048; 84443; 85025; A9577